=== PATIENT | female | born 1945 | race Caucasian/White ===

== ENCOUNTER 2021-05-27 06:41 | Day surgery (SDC) | payer OTHER | END 2021-05-27 09:55 | disposition home or self-care (01) | LOC: AMB-ENDOS 06:41 | PROVIDERS: ATTEND Surgery | DX: D13.0 Benign neoplasm of esophagus (principal); D13.1 Benign neoplasm of stomach; D13.2 Benign neoplasm of duodenum; K44.9 Diaphragmatic hernia without obstruction or gangrene; K57.30 Diverticulosis of large intestine without perforation or abscess without bleeding; K64.8 Other hemorrhoids; Z20.822 Contact with and (suspected) exposure to COVID-19 ==